=== PATIENT | female | born 1940 | race African-American/Black ===

== ENCOUNTER → 2016-09-20 | Outpatient (CLI) | payer MEDICARE, BC ==
[2015-10-21 15:04] VITALS: BP 142/85
[~2016-09-20] MED LIST: ALPR0.25 PO; AMLO10TA2 PO; ASPI81TA2 PO; CALC-98 PO; CETI10CA PO; CHOL20004 PO; CRESTOR5 MG PO; FLUT1DIS IH; LEVO500T38 PO; LOSA1TAB12 PO; MULT-189 PO; OMEG500C3 PO; OMEP20CA9 PO; POTA20TA12 PO; UBID100C PO
--- NOTE | 2016-09-20 09:21 | RAD ---
DATE: 09/20/2016. EXAM: DIGITAL SCREEN BILAT W/CAD. HISTORY: Routine mammographic screening. COMPARISON: 09/20/2016. This study was interpreted with the benefit of Computerized Aided Detection (CAD). FINDINGS: The breast parenchyma is primarily fatty replaced. There are no suspicious masses, microcalcifications or architectural distortion. Scattered and coarse calcifications appear benign. BI-RADS CATEGORY: 2 BENIGN FINDING(S). RECOMMENDED FOLLOW-UP: 12M 12 MONTH FOLLOW-UP. PQRS compliance statement: Patient information was entered into a reminder system with a target due date 09/20/2017 for the next mammogram. Mammography is a sensitive method for finding small breast cancers, but it does not detect them all and is not a substitute for careful clinical examination. A negative mammogram does not negate a clinically suspicious finding and should not result in delay in biopsying a clinically suspicious abnormality. "Our facility is accredited by the [employer] Mammography [employer]."
== END | disposition home or self-care (01) ==
LOC: MAMMO 08:38
PROVIDERS: ATTEND Internal Medicine
DX: Z12.31 Encounter for screening mammogram for malignant neoplasm of breast (principal)
CPT/HCPCS: G0202; 77067

== ENCOUNTER → 2016-11-01 | Outpatient (CLI) | payer MEDICARE, BC ==
[2015-10-21 15:04] VITALS: BP 142/85
--- NOTE | 2016-11-01 12:01 | RAD ---
Indication follow-up aneurysm. Axial noncontrast images through the abdomen and pelvis were obtained. Comparison is made to a previous examination August 01, 2015. The lung bases are clear. The liver and spleen appear unremarkable. There is cholelithiasis. No pancreatic abnormality is seen. There are no adrenal masses. There are bilateral renal cysts similar to the previous exam. Acute finding in the abdomen is not seen. Infrarenal abdominal aortic aneurysm is again seen. There has not been a significant change in the size. It measures approximately 3.7 cm in greatest dimension similar to the previous study. Known hernia in the left groin is noted and appears similar. Moderately extensive large bowel diverticulosis, most pronounced in the sigmoid colon is reproduced. There are degenerative changes in the lumbar spine likely with a component of spinal stenosis. IMPRESSION: Unchanged abdominal aortic aneurysm measuring approximately 3.7 cm in greatest dimension. Cholelithiasis. Renal cysts. Large bowel diverticulosis. Hernia left groin similar to the previous exam PQRS Compliance Statement: One or more of the following individualized dose reduction techniques were utilized for this examination: 1. Automated exposure control 2. Adjustment of the mA and/or kV according to patient size 3. Use of iterative reconstruction technique
== END | disposition home or self-care (01) ==
LOC: CT 11:13
PROVIDERS: ATTEND Internal Medicine
DX: K80.20 Calculus of gallbladder without cholecystitis without obstruction (principal); N28.1 Cyst of kidney, acquired; K57.30 Diverticulosis of large intestine without perforation or abscess without bleeding
CPT/HCPCS: 74150

== ENCOUNTER → 2017-09-24 | Outpatient (CLI) | payer MEDICARE, BC | END | disposition home or self-care (01) | LOC: MAMMO 09:22 | DX: Z12.31 Encounter for screening mammogram for malignant neoplasm of breast (principal) | CPT/HCPCS: 77063; 77067 ==

== ENCOUNTER → 2017-11-11 | Outpatient (CLI) | payer MEDICARE, BC | END | disposition home or self-care (01) | LOC: KCIC DEXA 08:39 | DX: Z13.820 Encounter for screening for osteoporosis (principal); M81.0 Age-related osteoporosis without current pathological fracture; M85.88 Other specified disorders of bone density and structure, other site; E28.39 Other primary ovarian failure | CPT/HCPCS: 77080 ==

== ENCOUNTER → 2018-09-25 | Outpatient (CLI) | payer MEDICARE, BC ==
[2015-10-21 15:04] VITALS: BP 142/85
[~2018-09-25] MED LIST changes: -AMLO10TA2 PO; +AMLO10TA8 PO; +ASPI-630 PO; -ASPI81TA2 PO; -CHOL20004 PO; +CHOL200074 PO; -LEVO500T38 PO; +LEVO500T59 PO; +OMEP20CA10 PO; -OMEP20CA9 PO
--- NOTE | 2018-09-25 12:06 | RAD ---
DATE: 09/25/2018 EXAM: MAMMO RUPERTO SCREENING BILATERAL HISTORY: Routine screening COMPARISON: 09/24/2017 This study was interpreted with the benefit of Computerized Aided Detection (CAD). Breast Density: FATTY The breast parenchyma is primarily fatty replaced. Breast parenchyma level density A. FINDINGS: 2-D and 3-D tomosynthesis imaging was performed in CC and MLO projections. No new or enlarging breast densities are seen. Benign type calcifications are present. No suspicious microcalcifications have developed. IMPRESSION: Stable mammograms without evidence of malignancy. BI-RADS CATEGORY: 2 BENIGN FINDING(S) RECOMMENDED FOLLOW-UP: 12M 12 MONTH FOLLOW-UP PQRS compliance statement: Patient information was entered into a reminder system with a target due date for the next mammogram. Mammography is a sensitive method for finding small breast cancers, but it does not detect them all and is not a substitute for careful clinical examination. A negative mammogram does not negate a clinically suspicious finding and should not result in delay in biopsying a clinically suspicious abnormality. "Our facility is accredited by the [employer] Mammography [employer]."
== END | disposition home or self-care (01) ==
LOC: MAMMO 08:40
PROVIDERS: ATTEND Internal Medicine
DX: Z12.31 Encounter for screening mammogram for malignant neoplasm of breast (principal)
CPT/HCPCS: 77063; 77067

== ENCOUNTER → 2019-07-28 | Outpatient (CLI) | payer MEDICARE, BC ==
[2015-10-21 15:04] VITALS: BP 142/85
[~2019-07-28] MED LIST changes: -OMEP20CA10 PO; +OMEP20CA16 PO
--- NOTE | 2019-07-28 11:03 | RAD ---
EXAM: CT Abdomen and Pelvis without IV contrast INDICATION: Aortic aneurysm follow-up TECHNIQUE: Multi-detector row CT images were acquired from the lung bases through the abdomen and pelvis without the use of IV contrast. Sagittal and coronal images were acquired from the transaxial data. All CT scans performed at this facility utilize dose optimization techniques as appropriate to the exam, including the following: Automated exposure control and adjustment of the mA and/or KV according to patient size (this includes techniques or standardized protocols for targeted exams where dose is indication/reason for exam). ORAL CONTRAST: None DLP 735 mGycm COMPARISON: 11/01/[address] with and without IV contrast. FINDINGS: The absence of IV contrast limits evaluation of soft tissue pathology. LOWER CHEST: Unremarkable LIVER: Unremarkable BILIARY SYSTEM: Gallbladder shows layering gallstones. Bile ducts are not dilated. PANCREAS: Unremarkable SPLEEN: Unremarkable ADRENALS: Unremarkable KIDNEYS & URETERS: 4 cm cyst in the midpole right kidney. Superior pole left kidney contains a 2.8 cm cyst. BLADDER: Unremarkable REPRODUCTIVE ORGANS: Hysterectomy. 2.3 cm left adnexal mass with internal calcifications could reflect patient's left ovary. GASTROINTESTINAL: No bowel obstruction, perforation or acute inflammation. Extensive colonic diverticulosis. The appendix is normal. MESENTERY/PERITONEUM/RETROPERITONEUM: Unremarkable VASCULAR: The infrarenal abdominal aortic aneurysm with asymmetric outpouching of the anterior wall of the abdominal aorta is redemonstrated, showing no significant enlargement in size from 3.9 x 3.4 cm (axial image 40 of 90 on series 2 on the prior exam) to 4.1 x 3.4 cm currently (axial image 64 of 155 on series 2). No abnormal density to the abdominal aorta suggestive of an intramural hematoma. Extensive arterial calcifications in the bilateral pelvic inflow vessels are noted. The bilateral common femoral arteries measure 1 cm each. The left external iliac artery measures 1 cm. The right external iliac artery measures 9 mm. Densely calcified right common iliac artery measures 1.4 cm in diameter. Left common iliac artery measures 1.7 cm. Abdominal aorta above the aneurysm measures 2.0 cm, as measured 5 cm above the aortic bifurcation. LYMPH NODES: No adenopathy OSSEOUS & SOFT TISSUES: Bilateral fat-containing inguinal hernias. Lumbar spinal degenerative spondylosis. No fracture or aggressive appearing osseous lesions.. IMPRESSION: Essentially stable saccular infrarenal abdominal aortic aneurysm, measuring 4.1 cm. Continued surveillance recommended. Consider follow-up in one year or sooner if the patient develops symptoms. Electronically signed by: Brittanie Linder MD (07/28/2019 11:00 AM) [facility]
== END | disposition home or self-care (01) ==
LOC: CT 08:12
PROVIDERS: ATTEND Internal Medicine
DX: I71.4 Abdominal aortic aneurysm, without rupture (principal); K40.90 Unilateral inguinal hernia, without obstruction or gangrene, not specified as recurrent; M47.816 Spondylosis without myelopathy or radiculopathy, lumbar region; I70.8 Atherosclerosis of other arteries; K57.30 Diverticulosis of large intestine without perforation or abscess without bleeding; N28.1 Cyst of kidney, acquired; K80.20 Calculus of gallbladder without cholecystitis without obstruction; Z90.710 Acquired absence of both cervix and uterus
CPT/HCPCS: 74176

== ENCOUNTER → 2019-09-28 | Outpatient (CLI) | payer MEDICARE, BC ==
[2015-10-21 15:04] VITALS: BP 142/85
--- NOTE | 2019-09-30 11:47 | RAD ---
History: Routine Screening. Technique: Bilateral digital mammographic routine views were obtained with 2-D and 3-D technique including use of CAD - computer aided detection. Comparison: 09/25/2018. Findings: Breast Tissue Density A : The breast tissue is predominately fatty replaced. There are no suspicious masses, microcalcifications or areas of architectural distortion. Impression: Negative mammogram. BI-RADS Category 1: Negative. Normal interval followup. . A mammogram does not have 100% sensitivity and therefore a negative imaging study should not delay further work up of a suspicious abnormality. The patient will receive a letter with the results in the mail. Patient information is entered into the reminder system with a target due date for the next screening mammogram. The patient will receive a reminder. "Our facility is accredited by the [employer] Mammography [employer]." BI-RADS 1 -- negative findings (within normal)
== END | disposition home or self-care (01) ==
LOC: MAMMO 08:44
PROVIDERS: ATTEND Internal Medicine
DX: Z12.31 Encounter for screening mammogram for malignant neoplasm of breast (principal)
CPT/HCPCS: 77063; 77067

== ENCOUNTER → 2020-02-01 | Outpatient (CLI) | payer MEDICARE, BC ==
[2015-10-21 15:04] VITALS: BP 142/85
[2020-02-01 09:08] LABS: BASO % 1 % (0-3); EOS # 0.2 x10^3/uL (0.0-0.7); EOS % 6 % (0-3); HEMATOCRIT 42.4 % (36.0-47.0); HEMOGLOBIN 14.4 g/dL (12.0-15.5); LYMPH # 1.5 x10^3/uL (1.0-4.8); LYMPH % 47 % (24-48); MEAN CORPUSCULAR HEMOGLOBIN 33 pg (25-35); MEAN CORPUSCULAR HGB CONC 34 g/dL (31-37); MEAN CORPUSCULAR VOLUME 96 fL (79-100); MONO # 0.5 x10^3/uL (0.0-1.1); MONO % 16 % (0-9); NEUT # 0.9 x10^3/uL (1.8-7.7); NEUT % 30 % (31-73); PLATELET COUNT 178 x10^3/uL (140-400); RED CELL DISTRIBUTION WIDTH 12.4 % (11.5-14.5); WHITE BLOOD COUNT 3.1 x10^3/uL (4.0-11.0)
[2020-02-01 10:26] LABS: % ATYL 3 % (0-0); % BANDS 2 % (0-9); % EOS 9 % (0-5); % LYMPHS 54 % (24-48); % MONOS 8 % (0-10); % SEGS 24 % (35-66); PLT ESTIMATE ADEQUATE (ADEQUATE)
== END ==
LOC: ONCLAB 08:36
PROVIDERS: ATTEND Internal Medicine Hematology & Oncology
DX: D72.819 Decreased white blood cell count, unspecified (principal)
CPT/HCPCS: 36415; 85007; 85025

== ENCOUNTER → 2020-08-15 | Outpatient (CLI) | payer MEDICARE, BC ==
[2015-10-21 15:04] VITALS: BP 142/85
[~2020-08-15] MED LIST changes: +AMLO-187 PO; -AMLO10TA8 PO; -UBID100C PO; +UBID100C39 PO
[2020-08-15 10:20] LABS: BASO % 1 % (0-3); EOS # 0.2 x10^3/uL (0.0-0.7); EOS % 5 % (0-3); HEMATOCRIT 44.4 % (36.0-47.0); HEMOGLOBIN 14.8 g/dL (12.0-15.5); LYMPH # 1.3 x10^3/uL (1.0-4.8); LYMPH % 42 % (24-48); MEAN CORPUSCULAR HEMOGLOBIN 32 pg (25-35); MEAN CORPUSCULAR HGB CONC 33 g/dL (31-37); MEAN CORPUSCULAR VOLUME 96 fL (79-100); MONO # 0.4 x10^3/uL (0.0-1.1); MONO % 13 % (0-9); NEUT # 1.3 x10^3/uL (1.8-7.7); NEUT % 41 % (31-73); PLATELET COUNT 141 x10^3/uL (140-400); RED BLOOD COUNT 4.61 x10^6/uL (3.50-5.40); RED CELL DISTRIBUTION WIDTH 13.3 % (11.5-14.5); WHITE BLOOD COUNT 3.2 x10^3/uL (4.0-11.0)
== END ==
LOC: ONCLAB 10:06
PROVIDERS: ATTEND Internal Medicine Hematology & Oncology
DX: D72.819 Decreased white blood cell count, unspecified (principal)
CPT/HCPCS: 36415; 85025

== ENCOUNTER → 2020-09-28 | Outpatient (CLI) | payer MEDICARE, BC ==
[2015-10-21 15:04] VITALS: BP 142/85
--- NOTE | 2020-09-29 17:40 | RAD ---
DATE: 09/28/2020 10:35 AM EXAM: MAMMO RUPERTO SCREENING BILATERAL HISTORY: Screening COMPARISON: 09/28/2019 Bilateral CC and MLO views of the breasts were performed. Bilateral breast tomosynthesis was performed in CC and MLO projections. This study was interpreted with the benefit of Computerized Aided Detection (CAD). FINDINGS: Breast Density: FATTY The Breast Parenchyma is primarily fatty replaced. Breast parenchyma level density A. No suspicious masses, microcalcifications or architectural distortion is present to suggest malignancy in either breast. The visualized axillae are unremarkable. IMPRESSION: No mammographic evidence of malignancy. BI-RADS CATEGORY: 1 NEGATIVE RECOMMENDED FOLLOW-UP: 12M 12 MONTH FOLLOW-UP Annual screening mammography is recommended, unless clinically indicated sooner based on symptoms or change in physical exam. PQRS compliance statement: Patient information was entered into a reminder system with a target due date for the next mammogram. Mammography is a sensitive method for finding small breast cancers, but it does not detect them all and is not a substitute for careful clinical examination. A negative mammogram does not negate a clinically suspicious finding and should not result in delay in biopsying a clinically suspicious abnormality. "Our facility is accredited by the [employer] Mammography [employer]."
== END ==
LOC: MAMMO 10:07
PROVIDERS: ATTEND Internal Medicine
DX: Z12.31 Encounter for screening mammogram for malignant neoplasm of breast (principal)
CPT/HCPCS: 77063; 77067

== ENCOUNTER → 2021-02-13 | Outpatient (CLI) | payer MEDICARE, BC ==
[2021-01-13 11:00] VITALS: BP 113/63
[~2021-02-13] MED LIST changes: +DOCU-109 PO; +HYDR-2761 PO; +ONDA4TAB12 PO; +OXYC1TAB15 PO
[2021-02-13 10:28] LABS: BASO % 1 % (0-3); EOS # 0.3 x10^3/uL (0.0-0.7); EOS % 9 % (0-3); HEMATOCRIT 42.5 % (36.0-47.0); HEMOGLOBIN 14.3 g/dL (12.0-15.5); LYMPH # 1.3 x10^3/uL (1.0-4.8); LYMPH % 40 % (24-48); MEAN CORPUSCULAR HEMOGLOBIN 33 pg (25-35); MEAN CORPUSCULAR HGB CONC 34 g/dL (31-37); MEAN CORPUSCULAR VOLUME 97 fL (79-100); MONO # 0.4 x10^3/uL (0.0-1.1); MONO % 13 % (0-9); NEUT # 1.2 x10^3/uL (1.8-7.7); NEUT % 37 % (31-73); PLATELET COUNT 165 x10^3/uL (140-400); RED BLOOD COUNT 4.37 x10^6/uL (3.50-5.40); WHITE BLOOD COUNT 3.3 x10^3/uL (4.0-11.0)
== END ==
LOC: ONCLAB 09:26
PROVIDERS: ATTEND Internal Medicine Hematology & Oncology
DX: D72.819 Decreased white blood cell count, unspecified (principal)
CPT/HCPCS: 36415; 85025

== ENCOUNTER → 2021-10-03 | Outpatient (CLI) | payer MEDICARE, BC ==
[2021-01-13 11:00] VITALS: BP 113/63
--- NOTE | 2021-10-03 14:03 | RAD ---
BILATERAL DIGITAL SCREENING 2-D AND 3-D MAMMOGRAM INDICATION: Routine screening. COMPARISON: September 28, 2020, September 28, 2019, September 25, 2018, September 24, 2017 and September 20, 2016 Interpretation was made using CAD. FINDINGS: Breast Density: The breasts are almost entirely fatty. RIGHT BREAST: No suspicious masses, calcifications or areas of architectural distortion are seen. LEFT BREAST: No suspicious masses, calcifications or areas of architectural distortion are seen. IMPRESSION: 1. No imaging evidence of malignancy. ASSESSMENT: BI-RADS 1. Negative. RECOMMENDATION: Routine annual screening mammogram. The facility will notify the patient of the results via mail. Patient information will be entered int o the mammography reminder system with target recall date for the next mammogram. A reminder letter w ill be generated by the facility. Electronically signed by: Tamela Silva MD (10/03/2021 2:01 PM) [id number]
== END ==
LOC: MAMMO 09:52
PROVIDERS: ATTEND Internal Medicine
DX: Z12.31 Encounter for screening mammogram for malignant neoplasm of breast (principal)
CPT/HCPCS: 77063; 77067